=== PATIENT | female | born 1940 | race Caucasian/White ===

== ENCOUNTER → 2021-08-28 | Outpatient (CLI) | payer MEDICARE ==
[~2021-08-28] MED LIST: ACCUPRIL40 MG PO; ARICEPT10 MG PO; CARBIDOPA-LEVO1 EA14 PO; CYANOCOBAL1000 MCG/1 INJ; CYMBALTA60 MG PO; EVISTA60 MG PO; HYDROCODON-ACE1 EAC4 PO; LEVOCETIRIZINE D5 MG PO; LIPITOR TAB 1010 MG PO; NORVASC 5 MG TAB5 MG PO; SYNTHROID75 MCG PO
== END ==
LOC: KOH-I 14:08
DX: M79.604 Pain in right leg (principal); M25.552 Pain in left hip; R93.6 Abnormal findings on diagnostic imaging of limbs
CPT/HCPCS: 73502; 73552

== ENCOUNTER 2021-08-29 14:07 | Emergency (ER) | payer MEDICARE ==
[~2021-08-29 14:07] MED LIST changes: -HYDROCODON-ACE1 EAC4 PO
[2021-08-29] MEDS ORDERED: HYDROCODON-ACE1 EAC4 PO (17:49)
== END 2021-08-29 18:16 | disposition home or self-care (01) ==
LOC: ER1 14:07
DX: S80.02XA Contusion of left knee, initial encounter (principal); I10 Essential (primary) hypertension; E07.9 Disorder of thyroid, unspecified; W19.XXXA Unspecified fall, initial encounter
CPT/HCPCS: 73502; 73552; 73564; 73590; 93971; 99284

== ENCOUNTER → 2022-04-02 | Outpatient (CLI) | payer MEDICARE ==
[~2022-04-02] MED LIST changes: +HYDROCODON-ACE1 EAC4 PO
== END ==
LOC: KOH-I 12:09
DX: J18.9 Pneumonia, unspecified organism (principal)
CPT/HCPCS: 71046